=== PATIENT | male | born 1930 | race Caucasian/White ===

== ENCOUNTER → 2016-12-02 | Outpatient (CLI) | payer MEDICARE, BC ==
[2016-10-01 02:50] VITALS: BP 176/84
[~2016-12-02] MED LIST: DIPH25CA58 PO
--- NOTE | 2016-12-02 09:26 | KCIC ---
PROCEDURE Cervical spine series. HISTORY Chronic neck pain. TECHNIQUE Cervical spine series contains 8 images. COMPARISON None provided. FINDINGS There is bone demineralization limiting the study. Anterolisthesis at C4-C5 measures 4 millimeters. Anterolisthesis at C7-T1 measures 4 millimeters. Endplate spurring is most notable anteriorly at the levels of C5-C6 and C6-C7. There is narrowing of the interspace at C5-C6. Oblique view positioning was difficult, limiting evaluation of osseous foraminal narrowing. Facet hypertrophy bilaterally is noted, probably greatest at C3-C4. Uncinate process spurring throughout the cervical spine is suspected. Evaluation of alignment of the C1 ring and the dens on the lateral views is limited, posterior arch of C1 may be displaced posteriorly in relation to the C2 vertebral body. It is unclear if this is degenerative, projectional/artifactual, or sequela of remote trauma. IMPRESSION Degenerative changes noted throughout the cervical spine. Evaluation is limited given difficulty positioning the patient as well as given bone demineralization. For this reason, either a post myelogram CT or an MRI could be considered for further evaluation. Electronically signed by: Mynor Mcgee MD (Dec 02, 2016 09:24:26)
== END | disposition home or self-care (01) ==
LOC: KCIC 08:25
PROVIDERS: ATTEND Nurse Practitioner Family
DX: M54.2 Cervicalgia (principal); M48.02 Spinal stenosis, cervical region
CPT/HCPCS: 72050

== ENCOUNTER → 2016-12-10 | Outpatient (CLI) | payer MEDICARE, BC ==
[2016-10-01 02:50] VITALS: BP 176/84
--- NOTE | 2016-12-10 13:46 | KCIC ---
PROCEDURE Cervical spine MRI without contrast. HISTORY Degenerative disc disease. TECHNIQUE Multiplanar and multi sequence magnetic resonance imaging of the cervical spine was performed without contrast. COMPARISON Radiographs dated 12/02/2016. FINDINGS There is a chronic severe wedge compression fracture of T2, without significant retropulsion of the cortex into the central canal. No additional fracture is seen. There is thoracic kyphosis and increased cervical lordosis. There is mild anterolisthesis of C3 on C4, C4 on C5, see 6 on C7 and T1 on T2 and moderate anterolisthesis of C7 on T1, the latter of which measures 5 mm. There is degenerative endplate remodeling with disc space narrowing and osteophytosis predominately at C5-C6 and C6-C7. There are few endplate Schmorl's nodes. There is deformation of the spinal cord at multiple levels due to central canal stenosis, described in detail below. There is suggestion of increased signal within the cervical spinal cord on sagittal images, likely artifactual given the absence of a correlate on axial images. There is pannus surrounding the odontoid, without significant narrowing of the foramina magnum. At C2-C3, there is a disc bulge and endplate remodeling. There is mild right facet arthropathy. There is mild left foraminal stenosis. At C3-C4, there is a posterior central disc protrusion superimposed on a disc bulge and endplate remodeling. There is moderate bilateral facet arthropathy. There is uncovertebral arthropathy. There is moderate bilateral foraminal stenosis. There is buckling of the ligamentum flavum. There is mild to moderate central canal stenosis measuring 8.4 mm in anterior-posterior dimension. At C4-C5, there is a diffuse disc bulge and endplate remodeling. There is moderate right and mild left facet arthropathy. There is uncovertebral arthropathy. There is mild to moderate right and moderate to severe left foraminal stenosis. There is no central canal stenosis. At C5-C6, there is a diffuse disc bulge and endplate osteophytosis. There is suggestion of a right paracentral superior disc extrusion. There is moderate right facet arthropathy. There is uncovertebral arthropathy. There is buckling of the ligamentum flavum. There is mild to moderate right and severe left foraminal stenosis. At C6-C7, there is a broad-based posterior central disc protrusion superimposed on a disc bulge and endplate remodeling. There is moderate facet arthropathy. There is uncovertebral arthropathy. There is mild right and moderate left foraminal stenosis. At C7-T1, there is a broad-based posterior disc protrusion with extrusion extending 5 mm superior to the disc space. This is superimposed on a disc bulge and endplate remodeling. There is moderate facet arthropathy. There is buckling of the ligamentum flavum. There is listhesis. There is mild right and byhk-qw-vvhavnhl left foraminal stenosis. At T1-T2, there is no stenosis. At T2-T3, there is a shallow posterior central disc protrusion. This slightly deforms the ventral aspect of spinal cord. There is no stenosis. IMPRESSION 1. Multilevel degenerative change throughout the cervical and upper thoracic spine, described in detail above. These findings result in mild left foraminal stenosis at C2-C3, moderate bilateral foraminal and mild to moderate central canal stenosis at C3-C4, mild to moderate right and moderate to severe left foraminal stenosis at C4-C5, mild to moderate right and severe left foraminal stenosis at C5-C6, mild right and moderate left foraminal stenosis at C6-C7, and mild right and [id number] left foraminal stenosis at C7-T1. 2. Severe chronic wedge compression deformity of T2. 3. Degenerative listhesis at multiple levels and increased thoracic kyphosis and cervical lordosis. Electronically signed by: Brenda Dove (Dec 10, 2016 13:44:38)
== END | disposition home or self-care (01) ==
LOC: KCIC MRI 12:21
PROVIDERS: ATTEND Nurse Practitioner Family
DX: M50.33 Other cervical disc degeneration, cervicothoracic region (principal); M48.03 Spinal stenosis, cervicothoracic region; M40.294 Other kyphosis, thoracic region; M51.24 Other intervertebral disc displacement, thoracic region; M12.88 Other specific arthropathies, not elsewhere classified, other specified site
CPT/HCPCS: 72141

== ENCOUNTER → 2017-08-05 | Outpatient (CLI) | payer MEDICARE, BC ==
[2016-10-01 02:50] VITALS: BP 176/84
[~2017-08-05] MED LIST changes: +GADOBUTROL 7.5 MMOL/7.5 ML VIAL IV ONE
--- NOTE | 2017-08-05 14:31 | KCIC ---
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 Contrast: 6 cc Gadavist Comparison: March 01, 2012 Findings: There is no evidence of recent infarct or cytotoxic edema. Ventricular size is considered within normal limits given moderate generalized supratentorial atrophy, somewhat more greatly affecting the parietal lobes. There are again multiple foci of T2 and FLAIR hyperintense abnormality of the supratentorial white matter bilaterally, progression of more confluent signal abnormality of the bilateral periatrial white matter extending to parietal lobes. There are again a couple of tiny old lacunar infarcts of the right cerebellum. There is no significant midline shift, intraaxial mass effect, or focal abnormal extra-axial fluid collection. There is no significant hemosiderin deposition of the brain parenchyma. There is no nodular parenchymal or leptomeningeal enhancement. There is preservation of the major intracranial flow-voids at the skull base other than nonvisualization of the left vertebral artery flow-void as seen previously. The cerebellar tonsils are normal in location. There is no significant abnormality of the pineal gland or pituitary gland. There is nsva-bz-vkwloglp ethmoid air cell mucosal thickening, very minimally of the maxillary sinuses. There is moderate to severe fluid and thickening of the mastoid air cells bilaterally, new in the interval. There is preserved marrow signal of the clivus. Impression: 1. There is no evidence of recent infarct or abnormal intracranial enhancement 2. There is moderate supratentorial atrophy somewhat greater of the parietal lobes. 3. Overall moderate T2 and FLAIR hyperintense signal abnormality of the supratentorial white matter is somewhat greater than previous exam, nonspecific findings probably due to chronic microvascular ischemic disease. 4. There is moderate to severe fluid and thickening of the mastoid air cells bilaterally, of uncertain sterility. Electronically signed by: J Luis Bingham MD (08/05/2017 2:27 PM) [facility]
== END | disposition home or self-care (01) ==
LOC: KCIC MRI 12:31
PROVIDERS: ATTEND Nurse Practitioner Family
DX: R42 Dizziness and giddiness (principal); Z85.46 Personal history of malignant neoplasm of prostate
CPT/HCPCS: 70553; A9585

== ENCOUNTER → 2018-04-13 | Outpatient (CLI) | payer MEDICARE, BC | END | disposition home or self-care (01) | LOC: KCIC 12:00 | DX: S82.62XA Displaced fracture of lateral malleolus of left fibula, initial encounter for closed fracture (principal); M11.262 Other chondrocalcinosis, left knee; M25.462 Effusion, left knee; W19.XXXA Unspecified fall, initial encounter; Y93.89 Activity, other specified; Y92.89 Other specified places as the place of occurrence of the external cause; Y99.8 Other external cause status | CPT/HCPCS: 73560; 73610 ==

== ENCOUNTER 2018-04-15 13:04 | Inpatient (IN) | payer MEDICARE, BC ==
[2018-04-15] MEDS ORDERED: LABETALOL 20 MG/4 ML DISP.SYRIN. IVP (21:45)
[2018-04-16 03:54] LABS: ADD MAN DIFF? NO
[2018-04-16 04:00] LABS: BASO % 1 % (0-3); EOS % 1 % (0-3); HEMOGLOBIN 9.5 g/dL (13.0-17.5); LYMPH # 0.9 x10^3/uL (1.0-4.8); LYMPH % 10 % (24-48); MEAN CORPUSCULAR HEMOGLOBIN 31 pg (25-35); MEAN CORPUSCULAR HGB CONC 34 g/dL (31-37); MEAN CORPUSCULAR VOLUME 90 fL (79-100); MONO # 1.1 x10^3/uL (0.0-1.1); MONO % 13 % (0-9); NEUT # 6.5 x10^3uL (1.8-7.7); NEUT % 75 % (31-73); PLATELET COUNT 214 x10^3/uL (140-400); RED BLOOD COUNT 3.09 x10^6/uL (4.30-5.70); RED CELL DISTRIBUTION WIDTH 13.3 % (11.5-14.5); WHITE BLOOD COUNT 8.6 x10^3/uL (4.0-11.0)
[2018-04-16 04:15] LABS: ANION GAP 9 (6-14); BLOOD UREA NITROGEN 27 mg/dL (8-26); CALCIUM 8.5 mg/dL (8.5-10.1); CARBON DIOXIDE 24 mmol/L (21-32); CHLORIDE 107 mmol/L (98-107); CREATININE 1.4 mg/dL (0.7-1.3); GFR 48.1; GLUCOSE 103 mg/dL (70-99); SODIUM 140 mmol/L (136-145)
[2018-04-16] MEDS: ONDANSETRON PF 4 MG/2 ML VIAL. IV (08:23)
[2018-04-16] MEDS: MORPHINE SULFATE 2 MG/ML DISP.SYRIN. IV (08:27)
[2018-04-16] MEDS: traMADol 50 MG TABLET PO ×2 (13:15→23:20)
[2018-04-17] MEDS: traMADol 50 MG TABLET PO (08:21)
[2018-04-17] MEDS: POLYETHYLENE GLYCOL 3350 17 GM PACKET. PO (08:28)
[2018-04-17] MEDS: DOCUSATE SODIUM 100 MG CAPSULE. PO (08:28)
[2018-04-17] MEDS: amLODIPine BESYLATE 5 MG TABLET PO (09:00)
[2018-04-17] MEDS ORDERED: diphenhydrAMINE HCL 25 MG CAPSULE PO (10:30)
[2018-04-17] MEDS: TAMSULOSIN 0.4 MG CAP.ER.24H. PO (11:51)
[2018-04-17] MEDS: CLOPIDOGREL BISULFATE 75 MG TABLET PO (11:51)
[2018-04-17] MEDS: LOSARTAN POTASSIUM 50 MG TABLET. PO (11:51)
== END 2018-04-17 13:00 | DRG 563 ==
LOC: ER 13:04 → 4 NORTH 18:23
DX: S82.832A Other fracture of upper and lower end of left fibula, initial encounter for closed fracture (principal); D63.1 Anemia in chronic kidney disease; F03.90 Unspecified dementia, unspecified severity, without behavioral disturbance, psychotic disturbance, mood disturbance, and anxiety; W18.39XA Other fall on same level, initial encounter; I12.9 Hypertensive chronic kidney disease with stage 1 through stage 4 chronic kidney disease, or unspecified chronic kidney disease; Z60.2 Problems related to living alone; N18.3 Chronic kidney disease, stage 3 (moderate); Z79.02 Long term (current) use of antithrombotics/antiplatelets; Z85.828 Personal history of other malignant neoplasm of skin; Y93.89 Activity, other specified; Y92.89 Other specified places as the place of occurrence of the external cause; Y99.8 Other external cause status; Z88.7 Allergy status to serum and vaccine
CPT/HCPCS: 36415; 73560; 73610; 80048; 85025; 97161-GP; 97166-GO; 99285; 99285-25; J2270; J2405

== ENCOUNTER 2019-04-01 17:18 | Inpatient (IN) | payer MEDICARE, BC ==
[~2019-04-01] VITALS: Ht 162.6 cm; Wt 71.0 kg
[~2019-04-01 17:18] MED LIST changes: +CLOP75TA PO; -GADOBUTROL 7.5 MMOL/7.5 ML VIAL IV ONE; +LOSA-73 PO; +TAMS0.4C2 PO
[2019-04-01] MEDS ORDERED: NITROGLYCERIN SUBLINGUAL 0.4 MG BOTTLE OF 25. SL PRN ×2 (18:00→21:00)
[2019-04-01] MEDS ORDERED: ASPIRIN 325 MG TABLET PO ONE (18:00)
[2019-04-01] MEDS ORDERED: MORPHINE SULFATE 4 MG/ML VIAL. IV/SQ PRN (18:00)
[2019-04-01 18:37] LABS: BASO # 0.1 x10^3/uL (0.0-0.2); BASO % 1 % (0-3); EOS # 0.1 x10^3/uL (0.0-0.7); EOS % 2 % (0-3); HEMATOCRIT 32.5 % (39.0-53.0); HEMOGLOBIN 10.8 g/dL (13.0-17.5); LYMPH # 1.1 x10^3/uL (1.0-4.8); LYMPH % 15 % (24-48); MEAN CORPUSCULAR HEMOGLOBIN 32 pg (25-35); MEAN CORPUSCULAR HGB CONC 33 g/dL (31-37); MEAN CORPUSCULAR VOLUME 95 fL (79-100); MONO % 13 % (0-9); NEUT # 5.2 x10^3uL (1.8-7.7); NEUT % 70 % (31-73); PLATELET COUNT 234 x10^3/uL (140-400); RED BLOOD COUNT 3.41 x10^6/uL (4.30-5.70); RED CELL DISTRIBUTION WIDTH 14.8 % (11.5-14.5); WHITE BLOOD COUNT 7.4 x10^3/uL (4.0-11.0)
[2019-04-01 18:46] LABS: PROTHROMBIN TIME PATIENT 12.6 SEC (11.7-14.0)
[2019-04-01 18:47] LABS: CREATININE 1.5 mg/dL (0.7-1.3); GFR 44.3; POTASSIUM 4.4 mmol/L (3.5-5.1)
[2019-04-01 18:53] LABS: ALBUMIN 3.2 g/dL (3.4-5.0); ALBUMIN/GLOBULIN RATIO 0.9 (1.0-1.7); MAGNESIUM 1.7 mg/dL (1.8-2.4); TOTAL BILIRUBIN 0.1 mg/dL (0.2-1.0); TOTAL PROTEIN 6.6 g/dL (6.4-8.2)
--- NOTE | 2019-04-01 18:58 | RAD ---
PORTABLE CHEST 1V History: Chest pain Comparison: None. Findings: Single view of the chest is submitted. There is no infiltrate, pneumothorax, or effusion. The pericardial cardiac silhouette is within normal limits in size. Impression: 1. There is no radiographic evidence of acute cardiopulmonary disease. Electronically signed by: J Luis Bingham MD (04/01/2019 6:55 PM) [facility]
[2019-04-01 19:01] LABS: CREATINE KINASE 73 U/L (39-308)
[2019-04-01 19:12] LABS: BILIRUBIN,URINE NEGATIVE (NEG); CLARITY,URINE CLEAR; COLOR,URINE YELLOW; NITRITE,URINE NEGATIVE (NEG); PROTEIN,URINE NEGATIVE (NEG-TRACE); UROBILINOGEN,URINE 0.2 mg/dL (0.2 mg/dL)
[2019-04-01 19:16] LABS: BACTERIA,URINE 0 /HPF (0-FEW); RBC,URINE 0 /HPF (0-2); SQUAMOUS EPITHELIAL CELL,UR FEW /LPF; WBC,URINE 0 /HPF (0-4)
[2019-04-01 19:19] LABS: BARBITURATES NEG (NEG); BENZODIAZEPINES NEG (NEG); CANNABINOIDS NEG (NEG); COCAINE NEG (NEG); METHADONE NEG (NEG); OPIATES NEG (NEG); PHENCYCLIDINE NEG (NEG)
[2019-04-01 19:25] LABS: AMPHETAMINE/METHAMPHETAMINE NEG (NEG)
[2019-04-01] MEDS ORDERED: MORPHINE SULFATE 2 MG/ML VIAL. IV PRN (21:00)
[2019-04-01] MEDS ORDERED: ONDANSETRON PF 4 MG/2 ML VIAL. IV PRN (21:00)
--- NOTE | 2019-04-01 21:14 | PHYS DOC ---
Past Medical History Past Medical History: Cancer, Constipation, Dementia, Hypertension, Renal Disease, Other Additional Past Medical Histor: prostate and skin cancer Past Surgical History: Other Additional Past Surgical Histo: TURP,R shoulder, RT WRIST Alcohol Use: Occasionally Drug Use: None Adult General Chief Complaint Chief Complaint: CHEST WALL PAIN HPI HPI Patient is a 88 year old male with history of dementia, hypertension, kidney disease, who presents to the ED today complaining of 4 out of 10 sharp left intermittent chest pain that began last night. Patient denies anything specific in exacerbating or relieving the pain. He is in the ED with the daughter who is doing most of the talking. Review of Systems Review of Systems Constitutional: Denies fever or chills [] Eyes: Denies change in visual acuity, redness, or eye pain [] HENT: Denies nasal congestion or sore throat [] Respiratory: Denies cough or shortness of breath [] Cardiovascular: Reports left-sided chest pain GI: Denies abdominal pain, nausea, vomiting, bloody stools or diarrhea [] : Denies dysuria or hematuria [] Musculoskeletal: Denies back pain or joint pain [] Integument: Denies rash or skin lesions [] Neurologic: Denies headache, focal weakness or sensory changes [] All other systems were reviewed and found to be within normal limits, except as documented in this note. Current Medications Current Medications Current Medications Medications (Trade) Dose Ordered Sig/[facility] Start Time Stop Time Status Last Admin Dose Admin Aspirin (Mayo Aspirin) 325 mg 1X ONCE 04/01/19 18:00 04/01/19 18:01 DC 04/01/19 18:49 325 MG Morphine Sulfate (Morphine Sulfate) 2 mg PRN Q2HR PRN 04/01/19 21:00 04/02/19 20:59 Nitroglycerin (Nitrostat) 0.4 mg PRN Q5MIN PRN 04/01/19 21:00 04/02/19 20:59 Ondansetron HCl (Zofran) 4 mg PRN Q8HRS PRN 04/01/19 21:00 04/02/19 20:59 Allergies Allergies Allergies Coded Allergies Type Severity Reaction Last Updated Verified Tetanus Vaccines and Toxoid Allergy Mild 07/04/15 Yes Physical Exam Physical Exam Constitutional: Well developed, well nourished, no acute distress, non-toxic appearance. [] HENT: Normocephalic, atraumatic, bilateral external ears normal, oropharynx moist, no oral exudates, nose normal. [] Eyes: PERRLA, EOMI, conjunctiva normal, no discharge. [] Neck: Normal range of motion, no tenderness, supple, no stridor. [] Cardiovascular:Heart rate regular rhythm, no murmur [] Lungs & Thorax: Bilateral breath sounds clear to auscultation [] Abdomen: Bowel sounds normal, soft, no tenderness, no masses, no pulsatile masses. [] Skin: Warm, dry, no erythema, no rash. [] Back: No tenderness, no CVA tenderness. [] Extremities: No tenderness, no cyanosis, no clubbing, ROM intact, no edema. [] Neurologic: Alert and oriented X 3, normal motor function, normal sensory function, no focal deficits noted. [] Psychologic: Affect normal, judgement normal, mood normal. [] Current Patient Data Vital Signs Vital Signs Date Time Temp Pulse Resp B/P (MAP) Pulse Ox O2 Delivery O2 Flow Rate FiO2 04/01/19 18:35 97.9 62 20 144/67 (92) 99 Room Air 97.9 Lab Values Laboratory Tests Test 04/01/19 18:27 04/01/19 19:00 White Blood Count 7.4 x10^3/uL (4.0-11.0) Red Blood Count 3.41 x10^6/uL (4.30-5.70) L Hemoglobin 10.8 g/dL (13.0-17.5) L Hematocrit 32.5 % (39.0-53.0) L Mean Corpuscular Volume 95 fL (79-100) Mean Corpuscular Hemoglobin 32 pg (25-35) Mean Corpuscular Hemoglobin Concent 33 g/dL (31-37) Red Cell Distribution Width 14.8 % (11.5-14.5) H Platelet Count 234 x10^3/uL (140-400) Neutrophils (%) (Auto) 70 % (31-73) Lymphocytes (%) (Auto) 15 % (24-48) L Monocytes (%) (Auto) 13 % (0-9) H Eosinophils (%) (Auto) 2 % (0-3) Basophils (%) (Auto) 1 % (0-3) Neutrophils # (Auto) 5.2 x10^3uL (1.8-7.7) Lymphocytes # (Auto) 1.1 x10^3/uL (1.0-4.8) Monocytes # (Auto) 1.0 x10^3/uL (0.0-1.1) Eosinophils # (Auto) 0.1 x10^3/uL (0.0-0.7) Basophils # (Auto) 0.1 x10^3/uL (0.0-0.2) Prothrombin Time 12.6 SEC (11.7-14.0) Prothrombin Time INR 1.0 (0.8-1.1) Sodium Level 141 mmol/L (136-145) Potassium Level 4.4 mmol/L (3.5-5.1) Chloride Level 107 mmol/L (98-107) Carbon Dioxide Level 25 mmol/L (21-32) Anion Gap 9 (6-14) Blood Urea Nitrogen 28 mg/dL (8-26) H Creatinine 1.5 mg/dL (0.7-1.3) H Estimated GFR (Cockcroft-Gault) 44.3 BUN/Creatinine Ratio 19 (6-20) Glucose Level 103 mg/dL (70-99) H Calcium Level 9.0 mg/dL (8.5-10.1) Magnesium Level 1.7 mg/dL (1.8-2.4) L Total Bilirubin 0.1 mg/dL (0.2-1.0) L Aspartate Amino Transferase (AST) 22 U/L (15-37) Alanine Aminotransferase (ALT) 21 U/L (16-63) Alkaline Phosphatase 86 U/L (46-116) Creatine Kinase 73 U/L (39-308) Creatine Kinase MB (Mass) 1.2 ng/mL (0.0-3.6) Creatine Kinase MB Relative Index % (0-4) Troponin I Quantitative < 0.017 ng/mL (0.000-0.055) KF-Pua-Y-Type Natriuretic Peptide 258 pg/mL (0-449) Total Protein 6.6 g/dL (6.4-8.2) Albumin 3.2 g/dL (3.4-5.0) L Albumin/Globulin Ratio 0.9 (1.0-1.7) L Thyroid Stimulating Hormone (TSH) 2.427 uIU/mL (0.358-3.74) Urine Collection Type Unknown Urine Color Yellow Urine Clarity Clear Urine pH 5.0 Urine Specific [place] 1.020 Urine Protein Negative mg/dL (NEG-TRACE) Urine Glucose (UA) Negative mg/dL (NEG) Urine Ketones (Stick) Negative mg/dL (NEG) Urine Blood Negative (NEG) Urine Nitrite Negative (NEG) Urine Bilirubin Negative (NEG) Urine Urobilinogen Dipstick 0.2 mg/dL (0.2 mg/dL) Urine Leukocyte Esterase Negative (NEG) Urine RBC 0 /HPF (0-2) Urine WBC 0 /HPF (0-4) Urine Squamous Epithelial Cells Few /LPF Urine Bacteria 0 /HPF (0-FEW) Urine Mucus Mod /LPF Urine Opiates Screen Neg (NEG) Urine Methadone Screen Neg (NEG) Urine Barbiturates Neg (NEG) Urine Phencyclidine Screen Neg (NEG) Urine Amphetamine/Methamphetamine Neg (NEG) Urine Benzodiazepines Screen Neg (NEG) Urine Cocaine Screen Neg (NEG) Urine Cannabinoids Screen Neg (NEG) Urine Ethyl Alcohol Neg (NEG) Laboratory Tests 04/01/19 18:27 Laboratory Tests 04/01/19 18:27 EKG EKG [address] Lopez sinus rhythm HR 68 no STEMI[] Radiology/Procedures Radiology/Procedures []PROCEDURE: PORTABLE CHEST 1V PORTABLE CHEST 1V History: Chest pain Comparison: None. Findings: Single view of the chest is submitted. There is no infiltrate, pneumothorax, or effusion. The pericardial cardiac silhouette is within normal limits in size. Impression: 1. There is no radiographic evidence of acute cardiopulmonary disease. Electronically signed by: Thea Mart MD (04/01/2019 6:55 PM) [facility] DICTATED and SIGNED BY: THEA MART MD DATE: 04/01/19 5239 Course & Med Decision Making Course & Med Decision Making Pertinent Labs and Imaging studies reviewed. (See chart for details) This is a 88-year-old male patient presenting to the ED today with chest pain intermittently since yesterday night. EKG is negative. Troponin is negative. CBC CMP with nothing really acute. Creatinine noted at 1.5 with BUN of 28, Daughter states patient has stage III kidney disease. Chest x-ray is negative for any acute findings. Heart score [address] Campbell who stated this is no longer her patient she has not seen patient for years Spoke with Dr. Rainey who accepted patient for admission. Dragon Disclaimer Dragon Disclaimer This electronic medical record was generated, in whole or in part, using a voice recognition dictation system. Departure Departure Impression: Primary Impression: Chest pain Additional Impression: Acute on chronic renal failure Disposition: ADMITTED INPATIENT Condition: STABLE Referrals: DARIO DIXON MD (PCP) Problem Qualifiers Primary Impression: Chest pain Chest pain type: unspecified Qualified Codes: R07.9 - Chest pain, unspecified Additional Impression: Acute on chronic renal failure Acute renal failure type: unspecified Chronic kidney disease stage: unspecified stage Qualified Codes: N17.9 - Acute kidney failure, unspecified; N18.9 - Chronic kidney disease, unspecified DAYANARA GHOTRA [employer]ACHINE [employer] SPECIALIST April 01, 2019 21:14
[2019-04-01 22:00] VITALS: BP 151/67
--- NOTE | 2019-04-01 22:00 | NUR ---
Admit from ED via gurney. Patient amb from [facility] in [place] to bed in room with steady gait. Patient is alert with periods of confusion. History of dementia. Lives in assisted living. Patient denies chest pain at this time. Friend at bedside reports patient had a brief spell of chest pain around 3AM 04/01/19. Reviewed POC to include lab draws such as troponin and NPO after midnight for further testing in the morning. Orientated to room and call light. Patient verbalized understanding. Resting in bed. Call light at hand. VSS.
[2019-04-01] MEDS ORDERED: LOPE2CAP PO (22:22)
[2019-04-01] MEDS ORDERED: TAMS0.4C97 PO (22:22)
[2019-04-01] MEDS ORDERED: CYAN10005 PO (22:22)
[2019-04-01] MEDS ORDERED: MULT-246 PO (22:22)
[2019-04-01] MEDS ORDERED: GUAI600T47 PO (22:22)
[2019-04-01] MEDS ORDERED: OLME20TA17 PO (22:22)
[2019-04-01] MEDS ORDERED: MENT118G TP (22:22)
[2019-04-01] MEDS ORDERED: ACET500T68 PO (22:22)
[2019-04-01] MEDS ORDERED: MINE50OI TP (22:22)
[2019-04-01] MEDS ORDERED: ASPI1CPM PO (22:22)
[2019-04-01] MEDS ORDERED: DOCU-109 PO (22:22)
[2019-04-01] MEDS ORDERED: IRON18TA PO (22:22)
[2019-04-02 02:47] LABS: BASO % 1 % (0-3); EOS # 0.2 x10^3/uL (0.0-0.7); EOS % 3 % (0-3); HEMATOCRIT 31.9 % (39.0-53.0); HEMOGLOBIN 10.4 g/dL (13.0-17.5); LYMPH # 1.4 x10^3/uL (1.0-4.8); LYMPH % 21 % (24-48); MEAN CORPUSCULAR HEMOGLOBIN 31 pg (25-35); MEAN CORPUSCULAR HGB CONC 33 g/dL (31-37); MEAN CORPUSCULAR VOLUME 95 fL (79-100); MONO # 0.8 x10^3/uL (0.0-1.1); MONO % 12 % (0-9); NEUT # 4.1 x10^3uL (1.8-7.7); NEUT % 63 % (31-73); PLATELET COUNT 218 x10^3/uL (140-400); RED BLOOD COUNT 3.34 x10^6/uL (4.30-5.70); RED CELL DISTRIBUTION WIDTH 14.3 % (11.5-14.5); WHITE BLOOD COUNT 6.5 x10^3/uL (4.0-11.0)
[2019-04-02 02:58] LABS: CALCIUM 8.6 mg/dL (8.5-10.1); CREATININE 1.4 mg/dL (0.7-1.3); GFR 47.9; POTASSIUM 4.3 mmol/L (3.5-5.1)
[2019-04-02 03:30] VITALS: BP 139/60
--- NOTE | 2019-04-02 06:14 | EKG ---
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
[2019-04-02 07:00] VITALS: BP 132/62
--- NOTE | 2019-04-02 09:55 | PDOC1 ---
History and Physical Date of Admission Date of Admission DATE: 04/02/19 TIME: 09:55 Identification/Chief Complaint Chief Complaint 88 year old male with history of dementia, hypertension, kidney disease, who presents to the ED today complaining of 4 out of 10 sharp left intermittent chest pain that began 5 PM. Past Medical History Past Medical History Past Medical History Past Medical History Past Medical History: Cancer, Constipation, Dementia, Hypertension, Renal Disease, Other Additional Past Medical Histor: prostate and skin cancer Past Surgical History: Other Additional Past Surgical Histo: TURP,R shoulder, RT WRIST Alcohol Use: Occasionally Drug Use: None FHX HYPERTENSION Cardiovascular: HTN CENTRAL NERVOUS SYSTEM: Dementia Musculoskeletal: Osteoarthritis Family History Family History: No Significant Social History Smoke: No ALCOHOL: none Drugs: None Current Problem List Problem List Problems Medical Problems: (1) Acute on chronic renal failure Status: Acute Current Medications Current Medications Current Medications Aspirin (Mayo Aspirin) 325 mg 1X ONCE PO Last administered on 04/01/19at 18:49; Start 04/01/19 at 18:00; Stop 04/01/19 at 18:01; Status DC Nitroglycerin (Nitrostat) 0.4 mg PRN Q5MIN PRN SL CP RATING > 1/10; Start 04/01/19 at 18:00; Stop 04/01/19 at 21:00; Status DC Morphine Sulfate (Morphine Sulfate) 4 mg PRN Q15MIN PRN IV/SQ PAIN GREATER THAN 3/10; Start 04/01/19 at 18:00; Stop 04/01/19 at 22:00; Status DC Ondansetron HCl (Zofran) 4 mg PRN Q8HRS PRN IV NAUSEA/VOMITING 1ST CHOICE; Start 04/01/19 at 21:00; Stop 04/02/19 at 20:59 Morphine Sulfate (Morphine Sulfate) 2 mg PRN Q2HR PRN IV SEVERE PAIN; Start 04/01/19 at 21:00; Stop 04/02/19 at 20:59 Nitroglycerin (Nitrostat) 0.4 mg PRN Q5MIN PRN SL CHEST PAIN; Start 04/01/19 at 21:00; Stop 04/02/19 at 20:59 Active Scripts Active Reported Iron 18 Mg Tablet 18 Mg PO DAILY Biofreeze (Menthol) 118 Ml Gel..ml. 118 Ml TP PRN Q6HRS PRN Aquaphor Healing Ointment (Mineral Oil/Hydrophil Petrolat) 50 Gm Oint...g. 50 Gm TP HS Mucinex (Guaifenesin) 600 Mg Tablet.er 1 Tab PO PRN Q12HRS PRN Loperamide (Loperamide Hcl) 2 Mg Capsule 2 Mg PO PRN Q2HRS PRN Colace (Docusate Sodium) 100 Mg Capsule 100 Mg PO PRN DAILY PRN Acetaminophen 500 Mg Tablet 1 Tab PO PRN Q6HRS PRN Aggrenox 25 Mg-200 Mg Capsule (Aspirin/Dipyridamole) 1 Each Cpmp.12hr 1 Cap PO BID Vitamin B-12 (Cyanocobalamin (Vitamin B-12)) 1,000 Mcg Tablet 1 Tab PO DAILY Multi-Vitamin Daily (Multivitamin) 1 Each Tablet 1 Each PO DAILY Flomax (Tamsulosin Hcl) 0.4 Mg Cap.er.24h 2 Cap PO DAILY PRN Benicar (Olmesartan Medoxomil) 20 Mg Tablet 20 Mg PO DAILY Allergies Allergies: Coded Allergies: Tetanus Vaccines and Toxoid (Verified Allergy, Mild, 07/04/15) ROS Review of System Review of Systems Review of Systems Constitutional: Denies fever or chills [] Eyes: Denies change in visual acuity, redness, or eye pain [] HENT: Denies nasal congestion or sore throat [] Respiratory: Denies cough or shortness of breath [] Cardiovascular: Reports left-sided chest pain GI: Denies abdominal pain, nausea, vomiting, bloody stools or diarrhea [] : Denies dysuria or hematuria [] Musculoskeletal: Denies back pain or joint pain [] Integument: Denies rash or skin lesions [] Neurologic: Denies headache, focal weakness or sensory changes [] 14 PT systems were reviewed and found to be within normal limits, except as documented Current Medications General: YES: Fatigue PSYCHOLOGICAL ROS: YES: Memory difficulties Hematological and Lymphatic: No: Bleeding Problems, Blood Clots, Blood Transfusions, Brusing, Night Sweats, Pallor, Swollen Lymph Nodes, Other ENDOCRINE: No: Breast Changes, Galactorrhea, Hair Pattern Changes, Hot Flashes, Malaise/lethargy, Mood Swings, Palpitations, Polydipsia/polyuria, Skin Changes, Temperature Intolerance, Unexpected Weight Changes, Other Gastrointestinal: No Nausea, No Vomiting, No Abdominal Pain, No Diarrhea, No Constipation, No Melena, No Hematochezia, No Other Neurological: Yes Confusion Physical Exam Physical Exam Physical Exam Physical Exam Constitutional: Well developed, well nourished, no acute distress, non-toxic appearance. [] HENT: Normocephalic, atraumatic, bilateral external ears normal, oropharynx moist, no oral exudates, nose normal. [] Eyes: PERRLA, EOMI, conjunctiva normal, no discharge. [] Neck: Normal range of motion, no tenderness, supple, no stridor. [] Cardiovascular:Heart rate regular rhythm, no murmur [] Lungs & Thorax: Bilateral breath sounds clear to auscultation [] Abdomen: Bowel sounds normal, soft, no tenderness, no masses, no pulsatile masses. [] Skin: Warm, dry, no erythema, no rash. [] Back: No tenderness, no CVA tenderness. [] Extremities: No tenderness, no cyanosis, no clubbing, ROM intact, no edema. [] Neurologic: Alert and oriented X 3, normal motor function, normal sensory function, no focal deficits noted. [] Psychologic: Affect normal, judgement normal, mood normal. [] General: Cooperative Abdomen: Normal bowel sounds, Soft Rectal Exam: not examined Neuro: Cranial nerves 3-12 NL Psych/Mental Status: Mood NL Vitals Vitals Vital Signs Date Time Temp Pulse Resp B/P (MAP) Pulse Ox O2 Delivery O2 Flow Rate FiO2 04/02/19 08:27 Room Air 04/02/19 07:00 97.8 56 16 132/62 (85) 96 97.8 Labs Labs Laboratory Tests Test 04/01/19 18:27 04/01/19 19:00 04/02/19 02:00 White Blood Count 7.4 x10^3/uL (4.0-11.0) 6.5 x10^3/uL (4.0-11.0) Red Blood Count 3.41 x10^6/uL (4.30-5.70) 3.34 x10^6/uL (4.30-5.70) Hemoglobin 10.8 g/dL (13.0-17.5) 10.4 g/dL (13.0-17.5) Hematocrit 32.5 % (39.0-53.0) 31.9 % (39.0-53.0) Mean Corpuscular Volume 95 fL (79-100) 95 fL (79-100) Mean Corpuscular Hemoglobin 32 pg (25-35) 31 pg (25-35) Mean Corpuscular Hemoglobin Concent 33 g/dL (31-37) 33 g/dL (31-37) Red Cell Distribution Width 14.8 % (11.5-14.5) 14.3 % (11.5-14.5) Platelet Count 234 x10^3/uL (140-400) 218 x10^3/uL (140-400) Neutrophils (%) (Auto) 70 % (31-73) 63 % (31-73) Lymphocytes (%) (Auto) 15 % (24-48) 21 % (24-48) Monocytes (%) (Auto) 13 % (0-9) 12 % (0-9) Eosinophils (%) (Auto) 2 % (0-3) 3 % (0-3) Basophils (%) (Auto) 1 % (0-3) 1 % (0-3) Neutrophils # (Auto) 5.2 x10^3uL (1.8-7.7) 4.1 x10^3uL (1.8-7.7) Lymphocytes # (Auto) 1.1 x10^3/uL (1.0-4.8) 1.4 x10^3/uL (1.0-4.8) Monocytes # (Auto) 1.0 x10^3/uL (0.0-1.1) 0.8 x10^3/uL (0.0-1.1) Eosinophils # (Auto) 0.1 x10^3/uL (0.0-0.7) 0.2 x10^3/uL (0.0-0.7) Basophils # (Auto) 0.1 x10^3/uL (0.0-0.2) 0.0 x10^3/uL (0.0-0.2) Prothrombin Time 12.6 SEC (11.7-14.0) Prothromb Time International Ratio 1.0 (0.8-1.1) Sodium Level 141 mmol/L (136-145) 143 mmol/L (136-145) Potassium Level 4.4 mmol/L (3.5-5.1) 4.3 mmol/L (3.5-5.1) Chloride Level 107 mmol/L (98-107) 109 mmol/L (98-107) Carbon Dioxide Level 25 mmol/L (21-32) 24 mmol/L (21-32) Anion Gap 9 (6-14) 10 (6-14) Blood Urea Nitrogen 28 mg/dL (8-26) 27 mg/dL (8-26) Creatinine 1.5 mg/dL (0.7-1.3) 1.4 mg/dL (0.7-1.3) Estimated GFR (Cockcroft-Gault) 44.3 47.9 BUN/Creatinine Ratio 19 (6-20) Glucose Level 103 mg/dL (70-99) 96 mg/dL (70-99) Calcium Level 9.0 mg/dL (8.5-10.1) 8.6 mg/dL (8.5-10.1) Magnesium Level 1.7 mg/dL (1.8-2.4) Total Bilirubin 0.1 mg/dL (0.2-1.0) Aspartate Amino Transf (AST/SGOT) 22 U/L (15-37) Alanine Aminotransferase (ALT/SGPT) 21 U/L (16-63) Alkaline Phosphatase 86 U/L (46-116) Creatine Kinase 73 U/L (39-308) Creatine Kinase MB (Mass) 1.2 ng/mL (0.0-3.6) Creatine Kinase MB Relative Index % (0-4) Troponin I Quantitative < 0.017 ng/mL (0.000-0.055) < 0.017 ng/mL (0.000-0.055) AX-Psb-G-Type Natriuretic Peptide 258 pg/mL (0-449) Total Protein 6.6 g/dL (6.4-8.2) Albumin 3.2 g/dL (3.4-5.0) Albumin/Globulin Ratio 0.9 (1.0-1.7) Thyroid Stimulating Hormone (TSH) 2.427 uIU/mL (0.358-3.74) Urine Collection Type Unknown Urine Color Yellow Urine Clarity Clear Urine pH 5.0 Urine Specific [place] 1.020 Urine Protein Negative mg/dL (NEG-TRACE) Urine Glucose (UA) Negative mg/dL (NEG) Urine Ketones (Stick) Negative mg/dL (NEG) Urine Blood Negative (NEG) Urine Nitrite Negative (NEG) Urine Bilirubin Negative (NEG) Urine Urobilinogen Dipstick 0.2 mg/dL (0.2 mg/dL) Urine Leukocyte Esterase Negative (NEG) Urine RBC 0 /HPF (0-2) Urine WBC 0 /HPF (0-4) Urine Squamous Epithelial Cells Few /LPF Urine Bacteria 0 /HPF (0-FEW) Urine Mucus Mod /LPF Urine Opiates Screen Neg (NEG) Urine Methadone Screen Neg (NEG) Urine Barbiturates Neg (NEG) Urine Phencyclidine Screen Neg (NEG) Urine Amphetamine/Methamphetamine Neg (NEG) Urine Benzodiazepines Screen Neg (NEG) Urine Cocaine Screen Neg (NEG) Urine Cannabinoids Screen Neg (NEG) Urine Ethyl Alcohol Neg (NEG) Laboratory Tests Test 04/01/19 18:27 04/01/19 19:00 04/02/19 02:00 White Blood Count 7.4 x10^3/uL (4.0-11.0) 6.5 x10^3/uL (4.0-11.0) Red Blood Count 3.41 x10^6/uL (4.30-5.70) 3.34 x10^6/uL (4.30-5.70) Hemoglobin 10.8 g/dL (13.0-17.5) 10.4 g/dL (13.0-17.5) Hematocrit 32.5 % (39.0-53.0) 31.9 % (39.0-53.0) Mean Corpuscular Volume 95 fL (79-100) 95 fL (79-100) Mean Corpuscular Hemoglobin 32 pg (25-35) 31 pg (25-35) Mean Corpuscular Hemoglobin Concent 33 g/dL (31-37) 33 g/dL (31-37) Red Cell Distribution Width 14.8 % (11.5-14.5) 14.3 % (11.5-14.5) Platelet Count 234 x10^3/uL (140-400) 218 x10^3/uL (140-400) Neutrophils (%) (Auto) 70 % (31-73) 63 % (31-73) Lymphocytes (%) (Auto) 15 % (24-48) 21 % (24-48) Monocytes (%) (Auto) 13 % (0-9) 12 % (0-9) Eosinophils (%) (Auto) 2 % (0-3) 3 % (0-3) Basophils (%) (Auto) 1 % (0-3) 1 % (0-3) Neutrophils # (Auto) 5.2 x10^3uL (1.8-7.7) 4.1 x10^3uL (1.8-7.7) Lymphocytes # (Auto) 1.1 x10^3/uL (1.0-4.8) 1.4 x10^3/uL (1.0-4.8) Monocytes # (Auto) 1.0 x10^3/uL (0.0-1.1) 0.8 x10^3/uL (0.0-1.1) Eosinophils # (Auto) 0.1 x10^3/uL (0.0-0.7) 0.2 x10^3/uL (0.0-0.7) Basophils # (Auto) 0.1 x10^3/uL (0.0-0.2) 0.0 x10^3/uL (0.0-0.2) Prothrombin Time 12.6 SEC (11.7-14.0) Prothromb Time International Ratio 1.0 (0.8-1.1) Sodium Level 141 mmol/L (136-145) 143 mmol/L (136-145) Potassium Level 4.4 mmol/L (3.5-5.1) 4.3 mmol/L (3.5-5.1) Chloride Level 107 mmol/L (98-107) 109 mmol/L (98-107) Carbon Dioxide Level 25 mmol/L (21-32) 24 mmol/L (21-32) Anion Gap 9 (6-14) 10 (6-14) Blood Urea Nitrogen 28 mg/dL (8-26) 27 mg/dL (8-26) Creatinine 1.5 mg/dL (0.7-1.3) 1.4 mg/dL (0.7-1.3) Estimated GFR (Cockcroft-Gault) 44.3 47.9 BUN/Creatinine Ratio 19 (6-20) Glucose Level 103 mg/dL (70-99) 96 mg/dL (70-99) Calcium Level 9.0 mg/dL (8.5-10.1) 8.6 mg/dL (8.5-10.1) Magnesium Level 1.7 mg/dL (1.8-2.4) Total Bilirubin 0.1 mg/dL (0.2-1.0) Aspartate Amino Transf (AST/SGOT) 22 U/L (15-37) Alanine Aminotransferase (ALT/SGPT) 21 U/L (16-63) Alkaline Phosphatase 86 U/L (46-116) Creatine Kinase 73 U/L (39-308) Creatine Kinase MB (Mass) 1.2 ng/mL (0.0-3.6) Creatine Kinase MB Relative Index % (0-4) Troponin I Quantitative < 0.017 ng/mL (0.000-0.055) < 0.017 ng/mL (0.000-0.055) BA-Ktb-X-Type Natriuretic Peptide 258 pg/mL (0-449) Total Protein 6.6 g/dL (6.4-8.2) Albumin 3.2 g/dL (3.4-5.0) Albumin/Globulin Ratio 0.9 (1.0-1.7) Thyroid Stimulating Hormone (TSH) 2.427 uIU/mL (0.358-3.74) Urine Collection Type Unknown Urine Color Yellow Urine Clarity Clear Urine pH 5.0 Urine Specific [place] 1.020 Urine Protein Negative mg/dL (NEG-TRACE) Urine Glucose (UA) Negative mg/dL (NEG) Urine Ketones (Stick) Negative mg/dL (NEG) Urine Blood Negative (NEG) Urine Nitrite Negative (NEG) Urine Bilirubin Negative (NEG) Urine Urobilinogen Dipstick 0.2 mg/dL (0.2 mg/dL) Urine Leukocyte Esterase Negative (NEG) Urine RBC 0 /HPF (0-2) Urine WBC 0 /HPF (0-4) Urine Squamous Epithelial Cells Few /LPF Urine Bacteria 0 /HPF (0-FEW) Urine Mucus Mod /LPF Urine Opiates Screen Neg (NEG) Urine Methadone Screen Neg (NEG) Urine Barbiturates Neg (NEG) Urine Phencyclidine Screen Neg (NEG) Urine Amphetamine/Methamphetamine Neg (NEG) Urine Benzodiazepines Screen Neg (NEG) Urine Cocaine Screen Neg (NEG) Urine Cannabinoids Screen Neg (NEG) Urine Ethyl Alcohol Neg (NEG) Images Images PORTABLE CHEST 1V History: Chest pain Comparison: None. Findings: Single view of the chest is submitted. There is no infiltrate, pneumothorax, or effusion. The pericardial cardiac silhouette is within normal limits in size. Impression: 1. There is no radiographic evidence of acute cardiopulmonary disease. Electronically signed by: Thea Mart MD (04/01/2019 6:55 PM) [facility] DICTATED and SIGNED BY: THEA MART MD VTE Prophylaxis Ordered VTE Prophylaxis Devices: Yes VTE Pharmacological Prophylaxi: Yes Assessment/Plan Assessment/Plan Impression: Chest pain Acute on chronic renal failure normocytic anemia dementia hypertension CKD stage 3 acute vasomotor nephropathy PLAN CVC BED ADMIT ECHO Cardiology consult dvt prophylaxis serial troponin i fluid support follow renal function Past Medical History Past Medical History Past Medical History: Cancer, Constipation, Dementia, Hypertension, Renal Disease, Other Additional Past Medical Histor: prostate and skin cancer Past Surgical History: Other Additional Past Surgical Histo: TURP,R shoulder, RT WRIST Alcohol Use: Occasionally Drug Use: None KUSHAL CORMIER MD April 02, 2019 09:55
[2019-04-02 10:55] VITALS: BP 131/60
[2019-04-02] MEDS ORDERED: DOCUSATE SODIUM 100 MG CAPSULE. PO PRN (13:30)
[2019-04-02] MEDS ORDERED: ISOSORBIDE MONONITRATE ER 30 MG TAB.ER.24H PO SCH (13:30)
[2019-04-02] MEDS ORDERED: TAMSULOSIN 0.4 MG CAP.ER.24H. PO SCH (13:30)
--- NOTE | 2019-04-02 13:43 | CONS ---
DATE OF CONSULTATION: 04/02/2019 REASON FOR CONSULTATION: Chest pain. HISTORY OF PRESENT ILLNESS: The patient is a pleasant 88-year-old man with past medical history as noted below, who presents to the hospital in the setting of two of the issues. The first issue he describes as a left lower quadrant pain, which worsens with deep inspiration. He does not have any exertional angina or dyspnea. The other issue he came in with was chest discomfort that woke him up from sleep approximately 3 days ago. He has not had any recurrence of this. The patient has some mild dementia and has had some difficulty remembering the actual events. Otherwise, no other acute issues. Opening to his best friend who is at his bedside, who is also his durable power of employee benefits attorney for medical issues. Currently, the patient has had some mild blood pressure elevation in the hospital, but otherwise his initial workup has been unremarkable. PAST MEDICAL HISTORY: 1. Hypertension. 2. Mild dementia. 3. Prior CVA with visual issues. 4. Chronic kidney disease. SOCIAL HISTORY: The patient denies any alcohol, tobacco or illicit drug use. ALLERGIES: TETANUS VACCINE. CURRENT CARDIAC MEDICATIONS: Include aspirin, dipyridamole 1 tablet daily, olmesartan 20 mg daily. REVIEW OF SYSTEMS: Negative for 10 of 14 systems reviewed, unless otherwise mentioned above in the HPI. PHYSICAL EXAMINATION: VITAL SIGNS: Afebrile, 70, 16, 131/60, 96% on room air. GENERAL: He is alert and oriented to place and time, but otherwise in no acute distress. HEAD AND NECK: Unremarkable. CARDIAC: Regular rate and rhythm without murmurs, rubs or gallops. LUNGS: Clear to auscultation bilaterally. ABDOMEN: Soft, nontender, nondistended. EXTREMITIES: Without any clubbing, cyanosis or edema. 2+ radial pulses. NEUROLOGIC: No focal deficits. MUSCULOSKELETAL: No trauma. DIAGNOSTIC STUDIES: Hemoglobin 10.4, platelets 218, creatinine 1.4. Troponin negative x 2. BNP was within normal limits. TSH within normal limits. Chest x-ray is unremarkable. IMPRESSION: 1. Noncardiac left lower quadrant pain, likely related to costochondritis versus other musculoskeletal issues. 2. Atypical chest pain, likely related to hypertension, differential diagnosis includes gastroesophageal reflux disease and/or other musculoskeletal issues. RECOMMENDATIONS: 1. I discussed extensively with the patient and his durable power of employee benefits attorney regarding further evaluation. At this present time, he is very low risk presentation given his atypical symptoms, negative biomarkers and a normal EKG. If he has any recurrence in the future, we will plan for initiation of ischemic evaluation with possible stress testing. 2. Add low dose Imdur for prevention of any anginal discomfort should this be the cause. Thank you for this consultation. CHETAN MARINO MD DR: KRISTINA/tory JOB#: [id number] / [id number]
[2019-04-02] MEDS ORDERED: ACETAMINOPHEN 500 MG TABLET PO PRN (13:45)
[2019-04-02] MEDS ORDERED: LOPERAMIDE 2 MG CAPSULE PO PRN (13:45)
[2019-04-02] MEDS ORDERED: LOSARTAN POTASSIUM 50 MG TABLET. PO SCH (14:00)
[2019-04-02] MEDS ORDERED: METHYL SALICYLATE/MENTHOL TOPICAL OINTMENT 29GM TUBE. TP PRN (14:00)
[2019-04-02] MEDS ORDERED: ASPIRIN/DIPYRIDAMOLE 200/25MG CAP.ER.12H. PO SCH (14:00)
[2019-04-02] MEDS ORDERED: CYANOCOBALAMIN (VITAMIN B-12) 1,000 MCG TABLET. PO SCH (14:00)
[2019-04-02 15:04] VITALS: BP 121/62
--- NOTE | 2019-04-02 15:09 | NUR ---
SS following for discharge planning. SS reviewed pt chart. Pt is from [facility], ; fax [phone]. SS contacted [facility] to verify pt's previous placement. [facility] verified that pt is a resident from there facility and is able to return when medically stable for discharge.
--- NOTE | 2019-04-02 16:33 | PDOC3 ---
Discharge Summary Date of Admission: April 01, 2019 Date of Discharge: April 02, 2019 Follow-Up: 3-5 days Admitting Diagnosis comment: VTE Prophylaxis Ordered VTE Prophylaxis Devices: Yes VTE Pharmacological Prophylaxi: Yes Assessment/Plan Assessment/Plan Impression: Chest pain Acute on chronic renal failure normocytic anemia dementia hypertension CKD stage 3 acute vasomotor nephropathy PLAN CVC BED ADMIT ECHO Cardiology consult OK FOR D/C PER CARDS VO RN dvt prophylaxis serial troponin i fluid support follow renal function FINAL DIAGNOSIS Problems Medical Problems: (1) Acute on chronic renal failure Status: Acute Brief Hospital Course Mr. Tatum is a 88 old [sex] who presented with [CHEST PAIN ] CONDITION AT DISCHARGE: Improved Discharge Medications Current Medications Aspirin ([place]o Aspirin) 325 mg 1X ONCE PO Last administered on 04/01/19at 18:49; Start 04/01/19 at 18:00; Stop 04/01/19 at 18:01; Status DC Nitroglycerin (Nitrostat) 0.4 mg PRN Q5MIN PRN SL CP RATING > 1/10; Start 04/01/19 at 18:00; Stop 04/01/19 at 21:00; Status DC Morphine Sulfate (Morphine Sulfate) 4 mg PRN Q15MIN PRN IV/SQ PAIN GREATER THAN 3/10; Start 04/01/19 at 18:00; Stop 04/01/19 at 22:00; Status DC Ondansetron HCl (Zofran) 4 mg PRN Q8HRS PRN IV NAUSEA/VOMITING 1ST CHOICE; Start 04/01/19 at 21:00; Stop 04/02/19 at 20:59 Morphine Sulfate (Morphine Sulfate) 2 mg PRN Q2HR PRN IV SEVERE PAIN; Start 04/01/19 at 21:00; Stop 04/02/19 at 20:59 Nitroglycerin (Nitrostat) 0.4 mg PRN Q5MIN PRN SL CHEST PAIN; Start 04/01/19 at 21:00; Stop 04/02/19 at 20:59 Cyanocobalamin (Vitamin B-12) 1,000 mcg DAILY PO Last administered on 04/02/19at 14:13; Start 04/02/19 at 14:00 Docusate Sodium (Colace) 100 mg PRN DAILY PRN PO CONSTIPATION; Start 04/02/19 at 13:30 Guaifenesin (Mucinex) 600 mg PRN Q12HRS PRN PO congestion; Start 04/02/19 at 13:30 Tamsulosin HCl (Flomax) 0.8 mg DAILY PO Last administered on 04/02/19at 14:14; Start 04/02/19 at 13:30 Acetaminophen (Tylenol) 500 mg PRN Q6HRS PRN PO MILD PAIN / TEMP; Start 04/02/19 at 13:45 Dipyridamole/ Aspirin (Aggrenox) 1 cap BID PO Last administered on 04/02/19at 14:39; Start 04/02/19 at 14:00 Ferrous Sulfate (Feosol) 325 mg DAILYWBKFT PO ; Start 04/03/19 at 08:00 Loperamide HCl (Imodium) 2 mg PRN Q2HR PRN PO DIARRHEA; Start 04/02/19 at 13:45 Multi-Ingredient Ointment (Analgesic [place]) 1 dona PRN Q6HRS PRN TP MUSCLE PAIN; Start 04/02/19 at 14:00 Multi-Ingred Cream/Lotion/Oil/ Oint (Hydrocerin Cream) 1 dona QHS TP ; Start 04/02/19 at 21:00 Multivitamins (Thera M Plus) 1 tab DAILY PO ; Start 04/03/19 at 09:00 Losartan Potassium (Cozaar) 100 mg DAILY PO Last administered on 04/02/19at 14:16; Start 04/02/19 at 14:00 Isosorbide Mononitrate (Imdur) 30 mg DAILY PO Last administered on 04/02/19at 14:17; Start 04/02/19 at 13:30 Active Scripts Active Reported Iron 18 Mg Tablet 18 Mg PO DAILY Biofreeze (Menthol) 118 Ml Gel..ml. 118 Ml TP PRN Q6HRS PRN Aquaphor Healing Ointment (Mineral Oil/Hydrophil Petrolat) 50 Gm Oint...g. 50 Gm TP HS Mucinex (Guaifenesin) 600 Mg Tablet.er 1 Tab PO PRN Q12HRS PRN Loperamide (Loperamide Hcl) 2 Mg Capsule 2 Mg PO PRN Q2HRS PRN Colace (Docusate Sodium) 100 Mg Capsule 100 Mg PO PRN DAILY PRN Acetaminophen 500 Mg Tablet 1 Tab PO PRN Q6HRS PRN Aggrenox 25 Mg-200 Mg Capsule (Aspirin/Dipyridamole) 1 Each Cpmp.12hr 1 Cap PO BID Vitamin B-12 (Cyanocobalamin (Vitamin B-12)) 1,000 Mcg Tablet 1 Tab PO DAILY Multi-Vitamin Daily (Multivitamin) 1 Each Tablet 1 Each PO DAILY Flomax (Tamsulosin Hcl) 0.4 Mg Cap.er.24h 2 Cap PO DAILY PRN Benicar (Olmesartan Medoxomil) 20 Mg Tablet 20 Mg PO DAILY Vital Signs Vital Signs Date Time Temp Pulse Resp B/P (MAP) Pulse Ox O2 Delivery O2 Flow Rate FiO2 04/02/19 15:04 97.6 78 18 121/62 (81) Room Air 97.6 04/02/19 10:55 96 Labs Laboratory Tests Test 04/01/19 18:27 04/01/19 19:00 04/02/19 02:00 White Blood Count 7.4 x10^3/uL (4.0-11.0) 6.5 x10^3/uL (4.0-11.0) Red Blood Count 3.41 x10^6/uL (4.30-5.70) 3.34 x10^6/uL (4.30-5.70) Hemoglobin 10.8 g/dL (13.0-17.5) 10.4 g/dL (13.0-17.5) Hematocrit 32.5 % (39.0-53.0) 31.9 % (39.0-53.0) Mean Corpuscular Volume 95 fL (79-100) 95 fL (79-100) Mean Corpuscular Hemoglobin 32 pg (25-35) 31 pg (25-35) Mean Corpuscular Hemoglobin Concent 33 g/dL (31-37) 33 g/dL (31-37) Red Cell Distribution Width 14.8 % (11.5-14.5) 14.3 % (11.5-14.5) Platelet Count 234 x10^3/uL (140-400) 218 x10^3/uL (140-400) Neutrophils (%) (Auto) 70 % (31-73) 63 % (31-73) Lymphocytes (%) (Auto) 15 % (24-48) 21 % (24-48) Monocytes (%) (Auto) 13 % (0-9) 12 % (0-9) Eosinophils (%) (Auto) 2 % (0-3) 3 % (0-3) Basophils (%) (Auto) 1 % (0-3) 1 % (0-3) Neutrophils # (Auto) 5.2 x10^3uL (1.8-7.7) 4.1 x10^3uL (1.8-7.7) Lymphocytes # (Auto) 1.1 x10^3/uL (1.0-4.8) 1.4 x10^3/uL (1.0-4.8) Monocytes # (Auto) 1.0 x10^3/uL (0.0-1.1) 0.8 x10^3/uL (0.0-1.1) Eosinophils # (Auto) 0.1 x10^3/uL (0.0-0.7) 0.2 x10^3/uL (0.0-0.7) Basophils # (Auto) 0.1 x10^3/uL (0.0-0.2) 0.0 x10^3/uL (0.0-0.2) Prothrombin Time 12.6 SEC (11.7-14.0) Prothromb Time International Ratio 1.0 (0.8-1.1) Sodium Level 141 mmol/L (136-145) 143 mmol/L (136-145) Potassium Level 4.4 mmol/L (3.5-5.1) 4.3 mmol/L (3.5-5.1) Chloride Level 107 mmol/L (98-107) 109 mmol/L (98-107) Carbon Dioxide Level 25 mmol/L (21-32) 24 mmol/L (21-32) Anion Gap 9 (6-14) 10 (6-14) Blood Urea Nitrogen 28 mg/dL (8-26) 27 mg/dL (8-26) Creatinine 1.5 mg/dL (0.7-1.3) 1.4 mg/dL (0.7-1.3) Estimated GFR (Cockcroft-Gault) 44.3 47.9 BUN/Creatinine Ratio 19 (6-20) Glucose Level 103 mg/dL (70-99) 96 mg/dL (70-99) Calcium Level 9.0 mg/dL (8.5-10.1) 8.6 mg/dL (8.5-10.1) Magnesium Level 1.7 mg/dL (1.8-2.4) Total Bilirubin 0.1 mg/dL (0.2-1.0) Aspartate Amino Transf (AST/SGOT) 22 U/L (15-37) Alanine Aminotransferase (ALT/SGPT) 21 U/L (16-63) Alkaline Phosphatase 86 U/L (46-116) Creatine Kinase 73 U/L (39-308) Creatine Kinase MB (Mass) 1.2 ng/mL (0.0-3.6) Creatine Kinase MB Relative Index % (0-4) Troponin I Quantitative < 0.017 ng/mL (0.000-0.055) < 0.017 ng/mL (0.000-0.055) QW-Ugh-D-Type Natriuretic Peptide 258 pg/mL (0-449) Total Protein 6.6 g/dL (6.4-8.2) Albumin 3.2 g/dL (3.4-5.0) Albumin/Globulin Ratio 0.9 (1.0-1.7) Thyroid Stimulating Hormone (TSH) 2.427 uIU/mL (0.358-3.74) Urine Collection Type Unknown Urine Color Yellow Urine Clarity Clear Urine pH 5.0 Urine Specific [place] 1.020 Urine Protein Negative mg/dL (NEG-TRACE) Urine Glucose (UA) Negative mg/dL (NEG) Urine Ketones (Stick) Negative mg/dL (NEG) Urine Blood Negative (NEG) Urine Nitrite Negative (NEG) Urine Bilirubin Negative (NEG) Urine Urobilinogen Dipstick 0.2 mg/dL (0.2 mg/dL) Urine Leukocyte Esterase Negative (NEG) Urine RBC 0 /HPF (0-2) Urine WBC 0 /HPF (0-4) Urine Squamous Epithelial Cells Few /LPF Urine Bacteria 0 /HPF (0-FEW) Urine Mucus Mod /LPF Urine Opiates Screen Neg (NEG) Urine Methadone Screen Neg (NEG) Urine Barbiturates Neg (NEG) Urine Phencyclidine Screen Neg (NEG) Urine Amphetamine/Methamphetamine Neg (NEG) Urine Benzodiazepines Screen Neg (NEG) Urine Cocaine Screen Neg (NEG) Urine Cannabinoids Screen Neg (NEG) Urine Ethyl Alcohol Neg (NEG) Laboratory Tests Test 04/01/19 18:27 04/01/19 19:00 04/02/19 02:00 White Blood Count 7.4 x10^3/uL (4.0-11.0) 6.5 x10^3/uL (4.0-11.0) Red Blood Count 3.41 x10^6/uL (4.30-5.70) 3.34 x10^6/uL (4.30-5.70) Hemoglobin 10.8 g/dL (13.0-17.5) 10.4 g/dL (13.0-17.5) Hematocrit 32.5 % (39.0-53.0) 31.9 % (39.0-53.0) Mean Corpuscular Volume 95 fL (79-100) 95 fL (79-100) Mean Corpuscular Hemoglobin 32 pg (25-35) 31 pg (25-35) Mean Corpuscular Hemoglobin Concent 33 g/dL (31-37) 33 g/dL (31-37) Red Cell Distribution Width 14.8 % (11.5-14.5) 14.3 % (11.5-14.5) Platelet Count 234 x10^3/uL (140-400) 218 x10^3/uL (140-400) Neutrophils (%) (Auto) 70 % (31-73) 63 % (31-73) Lymphocytes (%) (Auto) 15 % (24-48) 21 % (24-48) Monocytes (%) (Auto) 13 % (0-9) 12 % (0-9) Eosinophils (%) (Auto) 2 % (0-3) 3 % (0-3) Basophils (%) (Auto) 1 % (0-3) 1 % (0-3) Neutrophils # (Auto) 5.2 x10^3uL (1.8-7.7) 4.1 x10^3uL (1.8-7.7) Lymphocytes # (Auto) 1.1 x10^3/uL (1.0-4.8) 1.4 x10^3/uL (1.0-4.8) Monocytes # (Auto) 1.0 x10^3/uL (0.0-1.1) 0.8 x10^3/uL (0.0-1.1) Eosinophils # (Auto) 0.1 x10^3/uL (0.0-0.7) 0.2 x10^3/uL (0.0-0.7) Basophils # (Auto) 0.1 x10^3/uL (0.0-0.2) 0.0 x10^3/uL (0.0-0.2) Prothrombin Time 12.6 SEC (11.7-14.0) Prothromb Time International Ratio 1.0 (0.8-1.1) Sodium Level 141 mmol/L (136-145) 143 mmol/L (136-145) Potassium Level 4.4 mmol/L (3.5-5.1) 4.3 mmol/L (3.5-5.1) Chloride Level 107 mmol/L (98-107) 109 mmol/L (98-107) Carbon Dioxide Level 25 mmol/L (21-32) 24 mmol/L (21-32) Anion Gap 9 (6-14) 10 (6-14) Blood Urea Nitrogen 28 mg/dL (8-26) 27 mg/dL (8-26) Creatinine 1.5 mg/dL (0.7-1.3) 1.4 mg/dL (0.7-1.3) Estimated GFR (Cockcroft-Gault) 44.3 47.9 BUN/Creatinine Ratio 19 (6-20) Glucose Level 103 mg/dL (70-99) 96 mg/dL (70-99) Calcium Level 9.0 mg/dL (8.5-10.1) 8.6 mg/dL (8.5-10.1) Magnesium Level 1.7 mg/dL (1.8-2.4) Total Bilirubin 0.1 mg/dL (0.2-1.0) Aspartate Amino Transf (AST/SGOT) 22 U/L (15-37) Alanine Aminotransferase (ALT/SGPT) 21 U/L (16-63) Alkaline Phosphatase 86 U/L (46-116) Creatine Kinase 73 U/L (39-308) Creatine Kinase MB (Mass) 1.2 ng/mL (0.0-3.6) Creatine Kinase MB Relative Index % (0-4) Troponin I Quantitative < 0.017 ng/mL (0.000-0.055) < 0.017 ng/mL (0.000-0.055) SM-Tcy-O-Type Natriuretic Peptide 258 pg/mL (0-449) Total Protein 6.6 g/dL (6.4-8.2) Albumin 3.2 g/dL (3.4-5.0) Albumin/Globulin Ratio 0.9 (1.0-1.7) Thyroid Stimulating Hormone (TSH) 2.427 uIU/mL (0.358-3.74) Urine Collection Type Unknown Urine Color Yellow Urine Clarity Clear Urine pH 5.0 Urine Specific [place] 1.020 Urine Protein Negative mg/dL (NEG-TRACE) Urine Glucose (UA) Negative mg/dL (NEG) Urine Ketones (Stick) Negative mg/dL (NEG) Urine Blood Negative (NEG) Urine Nitrite Negative (NEG) Urine Bilirubin Negative (NEG) Urine Urobilinogen Dipstick 0.2 mg/dL (0.2 mg/dL) Urine Leukocyte Esterase Negative (NEG) Urine RBC 0 /HPF (0-2) Urine WBC 0 /HPF (0-4) Urine Squamous Epithelial Cells Few /LPF Urine Bacteria 0 /HPF (0-FEW) Urine Mucus Mod /LPF Urine Opiates Screen Neg (NEG) Urine Methadone Screen Neg (NEG) Urine Barbiturates Neg (NEG) Urine Phencyclidine Screen Neg (NEG) Urine Amphetamine/Methamphetamine Neg (NEG) Urine Benzodiazepines Screen Neg (NEG) Urine Cocaine Screen Neg (NEG) Urine Cannabinoids Screen Neg (NEG) Urine Ethyl Alcohol Neg (NEG) Allergies Allergies Coded Allergies Type Severity Reaction Last Updated Verified Tetanus Vaccines and Toxoid Allergy Mild 07/04/15 Yes Disposition/Orders: D/C to Home Patient Instructions D./C PLANNING 32 MIN KUSHAL CORMIER MD April 02, 2019 16:33
[2019-04-02] MEDS ORDERED: ISOS30TA4 PO (16:34)
--- NOTE | 2019-04-02 16:35 | DISCH ---
DISCHARGE INSTRUCTIONS Condition on Discharge Condition on Discharge: Stable Activity After Discharge Activity Instructions for Disc: Activity as tolerated Lifting Instructions after Dis: No heavy lifting, No pulling or pushing Exercise Instruction after Dis: Walk 10 min, 3 x per day Driving Instructions after Dis: Do not drive Diet after Discharge Diet after Discharge: Cardiac Checks after Discharge Checks after discharge: Check blood press - daily Contacting the DRCandis after DC Call your doctor for: If your condition worsens KUSHAL CORMIER MD April 02, 2019 16:35
--- NOTE | 2019-04-02 18:36 | NUR ---
Discharge Note: ORION ZARAGOZA [address] Discharge instructions and discharge home medications reviewed with Patient and a copy given. All questions have been answered and understanding verbalized. The following instructions and handouts were given: chest pain, chest wall pain Discontinued lines and drains: peripheral IV removed, catheter intact, no complications. Patient discharged to home with self-care via ambulation to personal vehicle. Close family friend/DPOA with pt. at time of DC. All questions answered at this time.
[2019-04-02] MEDS ORDERED: MINERAL OIL/PETROLATUM TOPICAL CREAM 113GM JAR. TP SCH (21:00)
[2019-04-03] MEDS ORDERED: FERROUS SULFATE 325 MG TABLET. PO SCH (08:00)
[2019-04-03] MEDS ORDERED: MULTIVITAMIN with MINERAL TABLET. PO SCH (09:00)
--- NOTE | 2019-04-06 10:56 | CARD ---
MR#: [id number] Date of Study: 04/02/2019 Ordering Physician: KUSHAL CORMIER, Referring Physician: DEANA KYLE Tech: Cathy Bashir APPROVED REPORT EXAM: Two-dimensional and M-mode echocardiogram with Doppler and color Doppler. Other Information Quality : GoodHR: 66bpm INDICATION Chest Pain 2D DIMENSIONS RVDd2.6 (2.9-3.5cm)Left Atrium(2D)2.8 (1.6-4.0cm) IVSd1.1 (0.7-1.1cm)Aortic Root(2D)3.1 (2.0-3.7cm) LVDd4.8 (3.9-5.9cm)LVOT Diameter2.1 (1.8-2.4cm) PWd1.0 (0.7-1.1cm)LVDs3.3 (2.5-4.0cm) FS (%) 31.1 %SV62.5 ml LVEF(%)58.7 (>50%) Aortic Valve AoV Peak Josse.139.8cm/sAoV VTI25.6cm AO Peak GR.7.8mmHgLVOT Peak Josse.91.1cm/s LVOT VTI 25.66cmAO Mean GR.4mmHg NIK (VMAX)1.15nv1YDI (VTI)3.54cm2 Mitral Valve MV E Zuejpdyn88.7cm/sMV DECEL QDNT016tz MV A Uptktklm27.1cm/sMV YQX67gt E/A Ratio0.7MVA (PHT)2.25cm2 TDI E/Lateral E'6.9E/Medial E'7.7 Pulmonary Valve PV Peak Xmoinfti295.2cm/sPV Peak Grad.6mmHg Tricuspid Valve TR P. Weneheqt866uf/sRAP PPOOZIEK1fyTr TR Peak Gr.68ynKiTNOT49qfIp Pulmonary Vein S1 Ikoyqgsv37.1cm/sD2 Hewrhpjl84.7cm/s PVa [id number] LEFT VENTRICLE The left ventricle is normal size. There is normal left ventricular wall thickness. The left ventricu lar systolic function is normal and the ejection fraction is within normal range. The Ejection Fracti on is >55%. There is normal LV segmental wall motion. Transmitral Doppler flow pattern is Grade I-abn ormal relaxation pattern. RIGHT VENTRICLE The right ventricle is normal size. There is normal right ventricular wall thickness. The right ventr icular systolic function is normal. ATRIA The left atrium size is normal. The right atrium size is normal. The interatrial septum is intact wit h no evidence for an atrial septal defect or patent foramen ovale as noted on 2-D or Doppler imaging. AORTIC VALVE The aortic valve is thickened but opens well. Doppler and Color Flow revealed trace aortic regurgitat ion. There is no significant aortic valvular stenosis. MITRAL VALVE The mitral valve is normal in structure and function. There is no evidence of mitral valve prolapse. There is no mitral valve stenosis. Doppler and Color Flow revealed no mitral valve regurgitation note d. TRICUSPID VALVE The tricuspid valve is normal in structure and function. Doppler and Color Flow revealed trace tricus pid regurgitation with an estimated PAP of 31 mmHg. There is no tricuspid valve stenosis. PULMONIC VALVE The pulmonic valve is not well visualized. Doppler and Color Flow revealed no pulmonic valvular regur gitation. There is no pulmonic valvular stenosis. GREAT VESSELS The aortic root is normal in size. The IVC was not visualized. PERICARDIAL EFFUSION There is no evidence of significant pericardial effusion. Critical Notification Critical Value: No <Conclusion> The left ventricular systolic function is normal and the ejection fraction is within normal range. Th e Ejection Fraction is >55%. There is normal LV segmental wall motion. Signed by : You Green, Electronically Approved : 04/02/2019 15:58:19
== END 2019-04-02 17:19 | disposition home or self-care (01) | DRG 391 ==
LOC: ER 17:18 → 2 SOUTH 20:23
PROVIDERS: ADMIT Internal Medicine; ATTEND Internal Medicine
DX: K21.9 Gastro-esophageal reflux disease without esophagitis (principal); N17.0 Acute kidney failure with tubular necrosis; I12.9 Hypertensive chronic kidney disease with stage 1 through stage 4 chronic kidney disease, or unspecified chronic kidney disease; F03.90 Unspecified dementia, unspecified severity, without behavioral disturbance, psychotic disturbance, mood disturbance, and anxiety; M19.90 Unspecified osteoarthritis, unspecified site; D64.9 Anemia, unspecified; N18.3 Chronic kidney disease, stage 3 (moderate); Z86.73 Personal history of transient ischemic attack (TIA), and cerebral infarction without residual deficits; Z85.828 Personal history of other malignant neoplasm of skin; Z85.46 Personal history of malignant neoplasm of prostate; Z88.7 Allergy status to serum and vaccine; Z82.49 Family history of ischemic heart disease and other diseases of the circulatory system
CPT/HCPCS: 36415; 71045; 80048; 80053; 80307; 81001; 82553; 83735; 83880; 84443; 84484; 85025; 85610; 87641; 93005; 93306; 99285-25